=== PATIENT | female | born 1945 | race Hispanic/Latino ===

== ENCOUNTER → 2019-04-02 | Outpatient (CLI) | payer OTHER, MEDICARE | END | disposition home or self-care (01) | LOC: SHCH 08:48 | PROVIDERS: ATTEND Internal Medicine Cardiovascular Disease | DX: I11.9 Hypertensive heart disease without heart failure (principal) | CPT/HCPCS: 93306 ==

== ENCOUNTER 2020-04-29 14:39 | Observation (INO) | payer MEDICARE, OTHER ==
[~2020-04-29] VITALS: Ht 160 cm; Wt 84.0 kg
[2020-04-29 15:02] LABS: BASOPHILS % (AUTO) 0.8 % (0.0-5.0); HEMATOCRIT 29.2 % (36-48); LYMPHOCYTES % (AUTO) 10.3 % (21.0-51.0); MEAN CORPUSCULAR HEMOGLOBIN 20.8 pg (27.0-33.0); MEAN CORPUSCULAR HGB CONC 28.4 g/dL (32.0-36.0); MEAN CORPUSCULAR VOLUME 73.2 fL (79-99); MONOCYTES % (AUTO) 8.2 % (3.0-13.0); NEUTROPHILS % (AUTO) 77.5 % (40.0-77.0); PLATELET COUNT (AUTO) 301 K/uL (130-400); RED BLOOD CELL COUNT(AUTO) 3.99 MIL/uL (4.00-5.50); RED CELL DISTRIBUTION WIDTH 17.6 % (11.0-15.5); WHITE BLOOD COUNT (AUTO) 9.7 K/uL (4.8-10.8)
[2020-04-29 15:04] LABS: APPEARANCE,URINE Clear (CLEAR); BILIRUBIN,URINE Negative (NEGATIVE); COLOR,URINE Yellow (YELLOW); GLUCOSE, URINE (UA) Negative (NEGATIVE); KETONES,URINE Negative (NEGATIVE); LEUKOCYTE ESTERASE ,URINE Large (NEGATIVE); NITRATE,URINE Positive (NEGATIVE); OCCULT BLOOD,URINE Small (NEGATIVE); PH,URINE 6.5 (5.0-8.0); PROTEIN,URINE POS 2+ mg/dL (NEGATIVE)
[2020-04-29 15:11] LABS: BACTERIA,URINE Moderate /HPF (None Seen)
[2020-04-29 15:13] LABS: CREATININE 0.6 mg/dL (0.5-1.5); POTASSIUM 3.2 mmol/L (3.5-5.1)
[2020-04-29 15:14] LABS: INR 0.95 (0.85-1.15); PARTIAL THROMBOPLASTIN TIME 23.8 SEC (26.3-35.5); PROTHROMBIN TIME 10.3 SEC (9.6-11.6)
[2020-04-29 15:17] LABS: BILIRUBIN,TOTAL 0.2 mg/dL (0.2-1.0); TOTAL PROTEIN, SERUM 6.6 g/dL (6.0-8.3)
[2020-04-29 15:17] LABS: SQUAMOUS EPITHELIAL CELL,UR Few /HPF (0-2)
[2020-04-29] MEDS ORDERED: CEFTRIAXONE SODIUM 1 GM ONE (16:58)
[2020-04-29] MEDS ORDERED: SODIUM CHLORIDE 0.9% 100 ML IV ONE (16:59)
--- NOTE | 2020-04-29 19:45 | NUR ---
Admission Assessment Received pt from ED at change of shift, routine admission assessment done, plan of care discuss, per pt (+) abdominal pain x 3days, with generalized body weakness. Verified with pt if she has been having black stool, denies as I made her aware that she was (+) for guaiac. Pt stated that she refers to have her flu vaccination with her PCP which she had it last year of July with her Pneumonia shot. Pt stated she has a home health that assist with her Ceja catheter management due to urinary retention but can't remember the name. She stated FC is being change monthly due this coming . Pt noted missing teeth stated with dentures but left at home. I offered to call her son as she lives alone, but claimed she will call him herself. Pt also stated bedbound only able to sit at the edge of the bed, unable to ambulate. 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 Home medications obtain & recorded. PT currently denies discomfort. NS at 50cc/hr to be initiated.
[2020-04-29 20:16] VITALS: BP 158/84
[2020-04-29] MEDS ORDERED: CELE-84 PO (20:33)
[2020-04-29] MEDS ORDERED: LEVO25TA54 PO (20:33)
[2020-04-29] MEDS ORDERED: TRAM100T40 PO (20:33)
[2020-04-29] MEDS ORDERED: OMEP20TA25 PO (20:33)
[2020-04-29] MEDS ORDERED: LEVO200T10 PO (20:33)
[2020-04-29] MEDS ORDERED: AEC81 PO (20:33)
[2020-04-29] MEDS ORDERED: OLME20TA22 PO (20:34)
[2020-04-29] MEDS ORDERED: NON-FORMULARY MEDICATION 1 EACH (Tramadol HCl 100 MG) PO PRN (20:45)
[2020-04-29] MEDS ORDERED: LIDOCAINE HCL-MPF 1% 2ML VIAL IV PRN (21:15)
[2020-04-29] MEDS ORDERED: POTASSIUM CHLORIDE 10% ELIXIR 20 MEQ/15 ML UDCUP PO PRN (21:15)
[2020-04-29] MEDS ORDERED: POTASSIUM CHLORIDE 20MEQ/100ML 100 ML IV PRN (21:15)
[2020-04-29] MEDS: SODIUM CHLORIDE 0.9% 1000ML 1,000 ML IV SCH (21:26)
[2020-04-29] MEDS: TRAMADOL HCL 50 MG TABLET PO PRN (21:28)
[2020-04-29] MEDS: POTASSIUM CHLORIDE 20 MEQ ERTAB PO PRN (21:38)
[2020-04-29 23:41] VITALS: BP 104/71
[2020-04-30] MEDS: POTASSIUM CHLORIDE 20 MEQ ERTAB PO PRN ×2 (00:04→01:42)
[2020-04-30 00:24] LABS: HEMATOCRIT 27.3 % (36-48); MEAN CORPUSCULAR HGB CONC 28.6 g/dL (32.0-36.0); MEAN CORPUSCULAR VOLUME 73.4 fL (79-99); RED BLOOD CELL COUNT(AUTO) 3.72 MIL/uL (4.00-5.50); RED CELL DISTRIBUTION WIDTH 17.7 % (11.0-15.5); WHITE BLOOD COUNT (AUTO) 10.4 K/uL (4.8-10.8)
[2020-04-30 03:53] LABS: CREATININE 0.6 mg/dL (0.5-1.5); POTASSIUM 3.7 mmol/L (3.5-5.1)
[2020-04-30 04:20] VITALS: BP 146/75
[2020-04-30] MEDS: LEVOTHYROXINE 25 MCG TABLET PO SCH (06:30)
[2020-04-30] MEDS: LEVOTHYROXINE 100 MCG TABLET PO SCH (06:30)
[2020-04-30] MEDS ORDERED: NON-FORMULARY MEDICATION 1 EACH (Omeprazole 20 MG) PO SCH (07:30)
[2020-04-30] MEDS ORDERED: LEVOTHYROXINE SODIUM 200 MCG PO SCH (07:30)
[2020-04-30 08:00] VITALS: BP 123/72
[2020-04-30] MEDS ORDERED: CELECOXIB 200 MG CAP PO SCH (08:00)
[2020-04-30 08:15] LABS: HEMATOCRIT 26.5 % (36-48); MEAN CORPUSCULAR HEMOGLOBIN 20.9 pg (27.0-33.0); MEAN CORPUSCULAR HGB CONC 28.3 g/dL (32.0-36.0); MEAN CORPUSCULAR VOLUME 73.8 fL (79-99); RED BLOOD CELL COUNT(AUTO) 3.59 MIL/uL (4.00-5.50); RED CELL DISTRIBUTION WIDTH 17.6 % (11.0-15.5); WHITE BLOOD COUNT (AUTO) 8.2 K/uL (4.8-10.8)
[2020-04-30] MEDS: PANTOPRAZOLE SODIUM 40 MG TABLET.DR PO SCH (09:00)
[2020-04-30] MEDS ORDERED: ASPIRIN 81 MG EC TAB PO SCH (09:00)
[2020-04-30] MEDS: Olmesartan Medoxomil 20 MG PO SCH (09:00)
[2020-04-30] MEDS ORDERED: NON-FORMULARY MEDICATION 1 EACH (Olmesartan Medoxomil 20 MG) PO SCH (09:00)
[2020-04-30 12:00] VITALS: BP 156/80
--- NOTE | 2020-04-30 13:41 | NUR ---
Notified Dr. Reece of new consult from [facility] for GI bleeding. Md acknowledged; no new orders.
[2020-04-30] MEDS ORDERED: LACTULOSE 20 GM/30 ML UDCUP PO PRN (15:45)
[2020-04-30] MEDS ORDERED: HYDRALAZINE HCL 20 MG/ML VIAL IV PRN (15:45)
[2020-04-30] MEDS ORDERED: LIDOCAINE HCL-MPF 1% 2ML VIAL IV PRN (15:45)
[2020-04-30] MEDS ORDERED: POTASSIUM CHLORIDE 20MEQ/100ML 100 ML IV PRN (15:45)
[2020-04-30] MEDS ORDERED: GUAIFENESIN-DM 200/20 MG 10 ML PO PRN (15:45)
[2020-04-30] MEDS ORDERED: ZOLPIDEM TARTRATE 5 MG TAB PO PRN (15:45)
[2020-04-30] MEDS ORDERED: ACETAMINOPHEN 325 MG TAB PO PRN ×2 (15:45)
[2020-04-30] MEDS ORDERED: MAGNESIUM 2GM PREMIX 50ML 50 ML IV PRN (15:45)
[2020-04-30] MEDS ORDERED: ONDANSETRON HCL 4 MG/2 ML VIAL IV PRN (15:45)
[2020-04-30] MEDS ORDERED: DIPHENHYDRAMINE HCL 25 MG CAPSULE PO PRN (15:45)
[2020-04-30] MEDS ORDERED: NITROGLYCERIN 0.4 MG SL TAB SL PRN (15:45)
[2020-04-30] MEDS ORDERED: DiphenhydrAMINE HCL 50 MG/ML VIAL IV PRN (15:45)
[2020-04-30 16:00] VITALS: BP 169/85
--- NOTE | 2020-04-30 16:04 | NUR ---
INITIAL: Met w pt this afternoon to discuss dcp. Pt mentions that she lives alone, she states that she has a wc, hospital bed and provider services 4hr/day. Per pt she is mostly bedbound. She mentions that the provider leaves her setup w a meal within reach. she states that her son checks in on her regularly. Pt states that her provider assists her w ADLs. She uses [facility] transportation when needed. Per pt she feels safe and comfortable to return home at mo. CM to continue to follow and wait for Md recommendations. Addendum: 04/30/20 at 1608 by KAELYN HICKS Amended: Links added.
[2020-04-30 16:05] LABS: HEMATOCRIT 26.5 % (36-48); MEAN CORPUSCULAR HEMOGLOBIN 20.9 pg (27.0-33.0); MEAN CORPUSCULAR HGB CONC 27.9 g/dL (32.0-36.0); MEAN CORPUSCULAR VOLUME 74.9 fL (79-99); RED BLOOD CELL COUNT(AUTO) 3.54 MIL/uL (4.00-5.50); RED CELL DISTRIBUTION WIDTH 17.5 % (11.0-15.5); WHITE BLOOD COUNT (AUTO) 7.8 K/uL (4.8-10.8)
--- NOTE | 2020-04-30 17:30 | NUR ---
SPOKE TO PT SON SAIDA, BRIEF UPDATE GIVEN. INFORMED HIM OF PROCEDURE TOMORROW AM EGD BY DR HUTCHISON, SON STATED SHE HAS HAD ONE IN THE PAST. INFORMED HIM THAT I WOULD GO IN TO EXPLAIN TO PT FURTHER AND HAVE HER SIGN CONSENT, PT SON STATED UNDERSTANDING. NO FURTHER QUESTIONS AT THIS TIME. HE STATED HE WOULD CALL BACK TOMORROW TO CHECK ON PT.
[2020-04-30] MEDS: CEFTRIAXONE SODIUM 1 GM IVP SCH (18:44)
[2020-04-30] MEDS: SODIUM CHLORIDE 0.9% 1000ML 1,000 ML IV SCH (18:45)
[2020-04-30 19:00] VITALS: BP 154/89
[2020-04-30] MEDS: TRAMADOL HCL 50 MG TABLET PO PRN (19:05)
[2020-04-30 23:00] VITALS: BP 135/71
[2020-05-01] VITALS (14 sets, daily range): BP systolic 100–166; BP diastolic 62–92
[2020-05-01 00:55] LABS: HEMATOCRIT 29.1 % (36-48); MEAN CORPUSCULAR HEMOGLOBIN 20.8 pg (27.0-33.0); MEAN CORPUSCULAR HGB CONC 27.8 g/dL (32.0-36.0); MEAN CORPUSCULAR VOLUME 74.6 fL (79-99); RED BLOOD CELL COUNT(AUTO) 3.9 MIL/uL (4.00-5.50); RED CELL DISTRIBUTION WIDTH 17.6 % (11.0-15.5); WHITE BLOOD COUNT (AUTO) 7.9 K/uL (4.8-10.8)
[2020-05-01] MEDS: LEVOTHYROXINE 100 MCG TABLET PO SCH (04:01)
[2020-05-01] MEDS: LEVOTHYROXINE 25 MCG TABLET PO SCH (04:01)
--- NOTE | 2020-05-01 04:07 | NUR ---
STATUS Pt slept fairly well.Voiced no complaints of pain or discomfort.Kept Npo after midnight for EGD with [facility] this am.
[2020-05-01 06:05] LABS: INR 0.96 (0.85-1.15); PARTIAL THROMBOPLASTIN TIME 25.2 SEC (26.3-35.5); PROTHROMBIN TIME 10.4 SEC (9.6-11.6)
[2020-05-01 07:14] LABS: HEMATOCRIT 25.3 % (36-48); MEAN CORPUSCULAR HEMOGLOBIN 21.1 pg (27.0-33.0); MEAN CORPUSCULAR HGB CONC 28.5 g/dL (32.0-36.0); MEAN CORPUSCULAR VOLUME 74.2 fL (79-99); RED BLOOD CELL COUNT(AUTO) 3.41 MIL/uL (4.00-5.50); RED CELL DISTRIBUTION WIDTH 17.5 % (11.0-15.5); WHITE BLOOD COUNT (AUTO) 7.4 K/uL (4.8-10.8)
[2020-05-01] MEDS: PANTOPRAZOLE SODIUM 40 MG TABLET.DR PO SCH (09:00)
[2020-05-01] MEDS: Olmesartan Medoxomil 20 MG PO SCH (09:00)
[2020-05-01] MEDS ORDERED: PROPOFOL 10 MG/ML 20ML VIAL IV ONE ×2 (12:45)
[2020-05-01 16:47] LABS: HEMATOCRIT 30.4 % (36-48); MEAN CORPUSCULAR HEMOGLOBIN 21.1 pg (27.0-33.0); MEAN CORPUSCULAR HGB CONC 27.6 g/dL (32.0-36.0); MEAN CORPUSCULAR VOLUME 76.2 fL (79-99); RED BLOOD CELL COUNT(AUTO) 3.99 MIL/uL (4.00-5.50); RED CELL DISTRIBUTION WIDTH 17.4 % (11.0-15.5); WHITE BLOOD COUNT (AUTO) 8.5 K/uL (4.8-10.8)
[2020-05-01] MEDS: CEFTRIAXONE SODIUM 1 GM IVP SCH (16:57)
[2020-05-01] MEDS: SODIUM CHLORIDE 0.9% 1000ML 1,000 ML IV SCH ×2 (17:55→20:01)
--- NOTE | 2020-05-01 20:00 | NUR ---
SON Pts son Maury called,update given on pt.s condition.Post EGD today,denies any pain or discomfort.
[2020-05-01] MEDS: MAG HYDROX/AL HYDROX/SIMETH ES 30 ML SUSP UDCUP PO PRN (20:58)
--- NOTE | 2020-05-01 20:58 | NUR ---
HEARTBURN Pt c/o of heartburn,Maalox given.
--- NOTE | 2020-05-01 21:59 | NUR ---
MED EFFECT PT voiced no complaints this time.
[2020-05-02] VITALS (11 sets, daily range): BP systolic 145–172; BP diastolic 57–98
--- NOTE | 2020-05-02 02:01 | NUR ---
BEHAVIOR Pt is anxious,restless,taking off her heart monitor and refusing staff to put it back on.She's disoriented to time and situation.Reoriented per staff. Addendum: 05/02/20 at 0218 by WILBERT GARAY RN RN Explained to her purpose of the heart monitor,she states,"It bother's me,I have Scleroderma.Pt called her sister and said "This nurse is forcing me to have this heart monitor,they think I"m crazy".She went ahead and sign refusal form.
--- NOTE | 2020-05-02 02:31 | NUR ---
SON Placed a call to her son,SAIDA and updated on pts status.He said his mom gets confused and hallucinated at times,He said maybe the medications made it worse.
--- NOTE | 2020-05-02 03:19 | NUR ---
AWAKE Pt stayed awake,calmer now.Bed alarm on.Fall precautions in progress.
[2020-05-02] MEDS: LEVOTHYROXINE 100 MCG TABLET PO SCH (03:49)
[2020-05-02] MEDS: Olmesartan Medoxomil 20 MG PO SCH (03:49)
[2020-05-02] MEDS: LEVOTHYROXINE 25 MCG TABLET PO SCH (03:49)
--- NOTE | 2020-05-02 03:50 | NUR ---
HOME MED Pt states she takes her pill for her thyroid at this time.She also took her bp med this time.SHe refused th Iv Hydralazine,states,"I don't like iv medications."
[2020-05-02] MEDS: MAG HYDROX/AL HYDROX/SIMETH ES 30 ML SUSP UDCUP PO PRN ×2 (03:53→04:09)
--- NOTE | 2020-05-02 04:09 | NUR ---
MARLEE Pt refused the medication for heartburn.States :I don't want it becaused you opened it while I was not looking".
[2020-05-02] MEDS: PANTOPRAZOLE SODIUM 40 MG TABLET.DR PO SCH (09:43)
[2020-05-02 13:23] LABS: ABG BASE EXCESS 2.3 mmol/L (-2.0-3.0); ABG HCO3 26.9 mmol/L (21.0-28.0); ABG OXYGEN SATURATION 93.9 % (95.0-99.0); ABG PCO2 42 mmHg (32-45)
[2020-05-02] MEDS ORDERED: PANT40TA PO (13:55)
[2020-05-02] MEDS ORDERED: SULF1TAB42 PO (13:55)
[2020-05-02] MEDS ORDERED: METOPROLOL TARTRATE 1 MG/ML 5ML VIAL IV PRN (15:45)
--- NOTE | 2020-05-02 16:19 | NUR ---
1400 Transport called for patient to arrive @ residence 1600- verified with [facility], patient on list; will notify when transport is en route.
--- NOTE | 2020-05-02 16:51 | NUR ---
Discharged to home via EMS non-emergent transport, will update family member. VSS, SL removed w/catheter tip intact. Patient's mccormick remains in, drained; report given to EMS. Belongings w/patient, personal cellphone around neck.
== END 2020-05-02 16:55 | disposition home or self-care (01) ==
LOC: EDH 14:39 → 3AH 17:24 → INTOOBSV 17:24 → OBSVTOIN 17:24 → 2BH 05-02 10:45
PROVIDERS: ADMIT Internal Medicine Pulmonary Disease; ATTEND Internal Medicine Pulmonary Disease
DX: U07.1 COVID-19 (principal); K92.0 Hematemesis; K25.9 Gastric ulcer, unspecified as acute or chronic, without hemorrhage or perforation; K29.70 Gastritis, unspecified, without bleeding; N39.0 Urinary tract infection, site not specified; M25.512 Pain in left shoulder; M34.9 Systemic sclerosis, unspecified; E03.9 Hypothyroidism, unspecified; I10 Essential (primary) hypertension; D64.9 Anemia, unspecified; Z98.51 Tubal ligation status; Z90.49 Acquired absence of other specified parts of digestive tract; Z79.82 Long term (current) use of aspirin; Z79.1 Long term (current) use of non-steroidal anti-inflammatories (NSAID); Z79.899 Other long term (current) drug therapy
CPT/HCPCS: 36415 ×3; 36600; 43239; 71045; 73020; 73030; 80048; 80053; 81001; 82150; 82270; 82550; 82803; 82948 ×9; 83690; 84484; 84550; 85025; 85027 ×6; 85610 ×2; 85730 ×2; 86850; 86900; 86901; 87077; 87088; 87186; 87426; 88305; 88341; 88342; 93005; 96361 ×4; 96374; 96376; 97161; 99285; A4215; A4221; A4222; A4223; A4510; A4620; A4657; A6250; G0378 ×8; G8981; G8982; G8983; J0360; J0696 ×3; J2704 ×2; J7030 ×3; U0003